=== PATIENT | male | born 1970 | race Caucasian/White ===

== ENCOUNTER 2017-09-09 19:31 | Emergency (ER) | payer OTHER ==
[~2017-09-09] VITALS: Ht 182.9 cm; Wt 72.6 kg
[~2017-09-09 19:31] MED LIST: CHLO25 PO; Keflex500 MG PO; LEVE500 PO; Therapeutic M1 EAC4 PO
== END 2017-09-09 20:59 | disposition home or self-care (01) ==
LOC: ER 19:31
DX: S61.011A Laceration without foreign body of right thumb without damage to nail, initial encounter (principal); Z23 Encounter for immunization; F17.200 Nicotine dependence, unspecified, uncomplicated; W26.8XXA Contact with other sharp object(s), not elsewhere classified, initial encounter
CPT/HCPCS: 12001; 90471; 90714; 99283

== ENCOUNTER 2018-06-28 11:16 | Emergency (ER) | payer OTHER ==
[~2018-06-28] VITALS: Ht 185.4 cm; Wt 80.7 kg
[2018-06-28 12:05] LABS: Source, Urine Clean Catch
[2018-06-28 12:06] LABS: BASOPHILS ABSOLUTE AUTO 0.17 K/mm3 (0.00-0.23); BASOPHILS PERCENT AUTO 1 % (0-2); EOSINOPHILS ABSOLUTE AUTO 0.81 K/mm3 (0.00-0.68); EOSINOPHILS PERCENT AUTO 6 % (0-6); Hematocrit 35.4 % (37.0-53.0); Hemoglobin 11.4 g/dL (13.5-17.5); IMMATURE GRAN ABSOLUTE AUTO 0.04 K/mm3 (0.00-0.10); IMMATURE GRAN PERCENT AUTO 0 % (0-1); LYMPHOCYTES PERCENT AUTO 14 % (21-46); MONOCYTES ABSOLUTE AUTO 1.51 K/mm3 (0.16-1.47); MONOCYTES PERCENT AUTO 12 % (4-13); Mean Corpuscular HGB 32.6 pg (26.0-34.0); Mean Corpuscular HGB Conc 32.2 g/dL (31.5-36.5); Mean Corpuscular Volume 101 fL (80-100); Mean Platelet Volume 9.7 fL (9.1-12.4); NEUTROPHILS ABSOLUTE AUTO 8.34 K/mm3 (1.96-9.15); NEUTROPHILS PERCENT AUTO 66 % (41-73); Platelet Count 203 K/mm3 (150-400); RDW Coefficient Variation 14.6 % (11.7-14.2); RDW Standard Deviation 54.9 fL (35.1-46.3); White Blood Cell Count 12.57 K/mm3 (4.00-11.30)
[2018-06-28 12:07] LABS: Blood, Urine Neg (Neg); Glucose Qualitative, Urine Neg (Neg); Ketones, Urine Neg (Neg); Leukocyte Esterase, Urine 1+ (Neg); Nitrite, Urine Neg (Neg); Protein, Urine 2+ (Neg); Urobilinogen, Urine 3+ (Normal); pH, Urine 6.5 (5.0-8.0)
[2018-06-28 12:21] LABS: International Normalized Ratio 1.25
[2018-06-28 12:24] LABS: Appearance, Urine Clear (Clear); Bilirubin, Urine 1+ (Neg); Color, Urine Yellow (P-Yellow)
[2018-06-28 12:25] LABS: Bacteria Not Seen /hpf; Red Blood Cells, Urine Not Seen /hpf (0-2); Squamous Epithelial Cells Few /hpf (Few); White Blood Cells, Urine Rare /hpf (0-5)
[2018-06-28 12:26] LABS: Mucus Mod (0-Heavy)
[2018-06-28 12:28] LABS: Alanine Aminotransfer (ALT/SGP 24 U/L (12-78); Albumin, Blood 2.6 g/dL (3.4-5.0); Albumin/Globulin Ratio 0.5 (0.8-1.8); Alk Phos 413 U/L (50-136); Anion Gap 10 mmol/L (6-16); Aspartate Aminotrans (AST/SGOT 64 U/L (12-37); Bilirubin, Total 1.3 mg/dL (0.1-1.0); Blood Urea Nitrogen 5 mg/dL (8-24); Bun/Creatinine Ratio 8.8 (12.0-20.0); CO2, Blood 25 mmol/L (21-32); Calcium, Blood 7.6 mg/dL (8.5-10.1); Chloride, Blood 107 mmol/L (98-108); Creatinine, Blood 0.57 mg/dL (0.60-1.20); Globulin, Blood 5.1 g/dL (2.2-4.0); Glomerular Filtration Rate >60 (60-); Glucose, Blood 100 mg/dL (70-99); Potassium, Blood 3.3 mmol/L (3.5-5.5); Sodium, Blood 142 mmol/L (136-145); Total Protein, Blood 7.7 g/dL (6.4-8.2)
== END 2018-06-28 17:25 | disposition home or self-care (01) ==
LOC: ER 11:16
PROVIDERS: Physician Assistant
DX: K76.9 Liver disease, unspecified (principal); E87.6 Hypokalemia; F10.20 Alcohol dependence, uncomplicated; F17.200 Nicotine dependence, unspecified, uncomplicated; Z79.899 Other long term (current) drug therapy
CPT/HCPCS: 36415; 49083; 71046; 80053; 81001; 85025; 85610; 85730; 99284-25

== ENCOUNTER 2018-07-27 11:40 | Emergency (ER) | payer OTHER ==
[~2018-07-27] VITALS: Ht 185.4 cm; Wt 79.4 kg
[2018-07-27 12:47] LABS: BASOPHILS ABSOLUTE AUTO 0.13 K/mm3 (0.00-0.23); BASOPHILS PERCENT AUTO 1 % (0-2); EOSINOPHILS ABSOLUTE AUTO 0.06 K/mm3 (0.00-0.68); EOSINOPHILS PERCENT AUTO 1 % (0-6); Hemoglobin 12.2 g/dL (13.5-17.5); IMMATURE GRAN ABSOLUTE AUTO 0.05 K/mm3 (0.00-0.10); IMMATURE GRAN PERCENT AUTO 0 % (0-1); LYMPHOCYTES ABSOLUTE AUTO 1.33 K/mm3 (0.84-5.20); LYMPHOCYTES PERCENT AUTO 10 % (21-46); MONOCYTES ABSOLUTE AUTO 1.01 K/mm3 (0.16-1.47); MONOCYTES PERCENT AUTO 8 % (4-13); Mean Corpuscular HGB 30.3 pg (26.0-34.0); Mean Corpuscular HGB Conc 32.1 g/dL (31.5-36.5); Mean Corpuscular Volume 94 fL (80-100); Mean Platelet Volume 9.5 fL (9.1-12.4); NEUTROPHILS ABSOLUTE AUTO 10.54 K/mm3 (1.96-9.15); NEUTROPHILS PERCENT AUTO 80 % (41-73); Platelet Count 252 K/mm3 (150-400); RDW Standard Deviation 55.7 fL (35.1-46.3); Red Blood Cell Count 4.03 M/mm3 (4.30-5.90); White Blood Cell Count 13.12 K/mm3 (4.00-11.30)
[2018-07-27 13:09] LABS: Alanine Aminotransfer (ALT/SGP 30 U/L (12-78); Albumin, Blood 2.6 g/dL (3.4-5.0); Albumin/Globulin Ratio 0.4 (0.8-1.8); Alk Phos 488 U/L (50-136); Anion Gap 12 mmol/L (6-16); Aspartate Aminotrans (AST/SGOT 106 U/L (12-37); Bilirubin, Total 1.9 mg/dL (0.1-1.0); Blood Urea Nitrogen 5 mg/dL (8-24); Bun/Creatinine Ratio 7.7 (12.0-20.0); CO2, Blood 25 mmol/L (21-32); Calcium, Blood 8.2 mg/dL (8.5-10.1); Chloride, Blood 101 mmol/L (98-108); Creatinine, Blood 0.65 mg/dL (0.60-1.20); Glomerular Filtration Rate >60 (60-); Glucose, Blood 102 mg/dL (70-99); Potassium, Blood 3.5 mmol/L (3.5-5.5); Sodium, Blood 138 mmol/L (136-145); Total Protein, Blood 8.6 g/dL (6.4-8.2)
[2018-07-27 17:00] LABS: Automated BF WBC Count 0.172 K/mm3 (0-999); Body Fluid WBC Count 172 /mm3 (0-999)
[2018-07-27 17:53] LABS: Appearance, Body Fluid Clear (Clear); Color, Body Fluid Yellow (None-Yellow); RBC Count, Body Fluid 22 /mm3 (0-0)
[2018-07-27 18:11] LABS: Source, Urine Clean Catch
[2018-07-27 18:27] LABS: Appearance, Urine Clear (Clear); Blood, Urine 4+ (Neg); Color, Urine Amber (P-Yellow); Glucose Qualitative, Urine Neg (Neg); Ketones, Urine 3+ (Neg); Leukocyte Esterase, Urine 1+ (Neg); Nitrite, Urine Pos (Neg); Protein, Urine 2+ (Neg); Specific Gravity, Urine 1.025 (1.003-1.022); Urobilinogen, Urine 4+ (Normal)
[2018-07-27 18:41] LABS: Total Cell Count, Body Fluid 100
[2018-07-27 19:21] LABS: Bilirubin, Urine 2+ (Neg)
[2018-07-27 19:23] LABS: Bacteria Mod /hpf; Mucus Mod (0-Heavy); Squamous Epithelial Cells Mod /hpf (Few)
== END 2018-07-27 20:06 | disposition home or self-care (01) ==
LOC: ER 11:40
PROVIDERS: Physician Assistant
DX: K70.31 Alcoholic cirrhosis of liver with ascites (principal); F17.210 Nicotine dependence, cigarettes, uncomplicated
CPT/HCPCS: 36415; 49083; 80053; 81001; 83690; 85025; 87086; 89051; 93005; 93010; 99284-25

== ENCOUNTER 2018-08-11 11:12 | Emergency (ER) | payer OTHER ==
[~2018-08-11] VITALS: Ht 185.4 cm; Wt 77.1 kg
== END 2018-08-11 16:15 | disposition home or self-care (01) ==
LOC: ER 11:12
DX: K70.31 Alcoholic cirrhosis of liver with ascites (principal); F17.210 Nicotine dependence, cigarettes, uncomplicated
CPT/HCPCS: 36415; 49083; 99284-25

== ENCOUNTER 2018-08-24 10:53 | Emergency (ER) | payer OTHER ==
[~2018-08-24] VITALS: Ht 185.4 cm; Wt 81.2 kg
[2018-08-24] MEDS ORDERED: Lactulose10 GM/151 PO (11:04)
[2018-08-24] MEDS ORDERED: FURO20 PO (11:04)
[2018-08-24] MEDS ORDERED: Sulfamethoxazo1 EAC4 PO (11:04)
[2018-08-24 12:47] LABS: BASOPHILS ABSOLUTE AUTO 0.08 K/mm3 (0.00-0.23); BASOPHILS PERCENT AUTO 1 % (0-2); EOSINOPHILS ABSOLUTE AUTO 0.17 K/mm3 (0.00-0.68); EOSINOPHILS PERCENT AUTO 2 % (0-6); Hematocrit 33.4 % (37.0-53.0); Hemoglobin 11.2 g/dL (13.5-17.5); IMMATURE GRAN ABSOLUTE AUTO 0.04 K/mm3 (0.00-0.10); IMMATURE GRAN PERCENT AUTO 0 % (0-1); LYMPHOCYTES ABSOLUTE AUTO 1.29 K/mm3 (0.84-5.20); LYMPHOCYTES PERCENT AUTO 12 % (21-46); MONOCYTES ABSOLUTE AUTO 1.27 K/mm3 (0.16-1.47); MONOCYTES PERCENT AUTO 11 % (4-13); Mean Corpuscular HGB 32.4 pg (26.0-34.0); Mean Corpuscular HGB Conc 33.5 g/dL (31.5-36.5); Mean Corpuscular Volume 97 fL (80-100); Mean Platelet Volume 9.8 fL (9.1-12.4); NEUTROPHILS ABSOLUTE AUTO 8.39 K/mm3 (1.96-9.15); NEUTROPHILS PERCENT AUTO 75 % (41-73); Platelet Count 158 K/mm3 (150-400); RDW Coefficient Variation 20.3 % (11.7-14.2); RDW Standard Deviation 71.9 fL (35.1-46.3); Red Blood Cell Count 3.46 M/mm3 (4.30-5.90); White Blood Cell Count 11.24 K/mm3 (4.00-11.30)
[2018-08-24 13:08] LABS: International Normalized Ratio 1.3; Prothrombin Time Results 13.5 Sec (9.7-11.5)
== END 2018-08-24 12:40 | disposition home or self-care (01) ==
LOC: ER 10:53
PROVIDERS: Emergency Medicine
DX: K70.31 Alcoholic cirrhosis of liver with ascites (principal); Z79.899 Other long term (current) drug therapy
CPT/HCPCS: 36415; 85025; 85610; 85730; 99284

== ENCOUNTER 2018-08-28 09:00 | Day surgery (SDC) | payer OTHER ==
[~2018-08-28 09:00] MED LIST changes: +FURO20 PO; +Lactulose10 GM/151 PO; +Sulfamethoxazo1 EAC4 PO
== END 2018-08-28 23:03 | disposition home or self-care (01) ==
LOC: US 09:00
DX: K74.60 Unspecified cirrhosis of liver (principal); R18.8 Other ascites
CPT/HCPCS: 49083

== ENCOUNTER 2018-09-08 13:19 | Day surgery (SDC) | payer OTHER ==
[2018-09-08 14:02] LABS: International Normalized Ratio 1.26; Prothrombin Time Results 13.1 Sec (9.7-11.5)
[2018-09-08 14:12] LABS: Alanine Aminotransfer (ALT/SGP 62 U/L (12-78); Albumin, Blood 2.2 g/dL (3.4-5.0); Albumin/Globulin Ratio 0.4 (0.8-1.8); Alk Phos 636 U/L (50-136); Anion Gap 11 mmol/L (6-16); Aspartate Aminotrans (AST/SGOT 166 U/L (12-37); Bilirubin, Total 3.1 mg/dL (0.1-1.0); Blood Urea Nitrogen 15 mg/dL (8-24); Bun/Creatinine Ratio 13.9 (12.0-20.0); CO2, Blood 23 mmol/L (21-32); Calcium, Blood 8.2 mg/dL (8.5-10.1); Chloride, Blood 91 mmol/L (98-108); Creatinine, Blood 1.08 mg/dL (0.60-1.20); Globulin, Blood 6.2 g/dL (2.2-4.0); Glomerular Filtration Rate >60 (60-); Glucose, Blood 110 mg/dL (70-99); Potassium, Blood 3.9 mmol/L (3.5-5.5); Sodium, Blood 125 mmol/L (136-145); Total Protein, Blood 8.4 g/dL (6.4-8.2)
[2018-09-08 15:23] LABS: Automated BF WBC Count 0.097 K/mm3 (0-999); Body Fluid WBC Count 97 /mm3 (0-999)
[2018-09-08 15:33] LABS: Albumin, Body Fluid 0.4 g/dL; Protein, Body Fluid 1.2 g/dL
[2018-09-08 15:47] LABS: Appearance, Body Fluid Clear (Clear); Color, Body Fluid Yellow (None-Yellow)
[2018-09-08 16:47] LABS: RBC Count, Body Fluid 58 /mm3 (0-0)
[2018-09-08 16:48] LABS: Total Cell Count, Body Fluid 100
[2018-09-12] MEDS ORDERED: SPIR50 (10:07)
[2018-09-12] MEDS ORDERED: CALCIUM + D3 E1 EACH (10:10)
[2018-09-12] MEDS ORDERED: LEVSOD75 (10:12)
[2018-09-12] MEDS ORDERED: ALBU90OI6 (10:13)
== END 2018-09-08 23:25 | disposition home or self-care (01) ==
LOC: US 13:19
PROVIDERS: Internal Medicine Gastroenterology
DX: K70.31 Alcoholic cirrhosis of liver with ascites (principal)
CPT/HCPCS: 36415; 49083; 80053; 82042; 82105; 84157; 85610; 87070; 87205; 89051

== ENCOUNTER 2018-09-27 11:11 | Emergency (ER) | payer OTHER ==
[~2018-09-27] VITALS: Ht 185.4 cm; Wt 79.4 kg
[~2018-09-27 11:11] MED LIST changes: +ALBU90OI6 INH; +CALCIUM 600 +1 EA10 PO; -FURO20 PO; +FURO40 PO; +LEVSOD50 PO; +SPIR50 PO
[2018-09-27 11:53] LABS: BASOPHILS ABSOLUTE AUTO 0.08 K/mm3 (0.00-0.23); BASOPHILS PERCENT AUTO 1 % (0-2); EOSINOPHILS ABSOLUTE AUTO 0.17 K/mm3 (0.00-0.68); EOSINOPHILS PERCENT AUTO 2 % (0-6); Hematocrit 32.7 % (37.0-53.0); Hemoglobin 11.3 g/dL (13.5-17.5); IMMATURE GRAN ABSOLUTE AUTO 0.04 K/mm3 (0.00-0.10); IMMATURE GRAN PERCENT AUTO 0 % (0-1); LYMPHOCYTES ABSOLUTE AUTO 1.37 K/mm3 (0.84-5.20); LYMPHOCYTES PERCENT AUTO 15 % (21-46); MONOCYTES ABSOLUTE AUTO 1.12 K/mm3 (0.16-1.47); MONOCYTES PERCENT AUTO 12 % (4-13); Mean Corpuscular HGB 34.5 pg (26.0-34.0); Mean Corpuscular HGB Conc 34.6 g/dL (31.5-36.5); Mean Corpuscular Volume 100 fL (80-100); Mean Platelet Volume 9.2 fL (9.1-12.4); NEUTROPHILS ABSOLUTE AUTO 6.66 K/mm3 (1.96-9.15); NEUTROPHILS PERCENT AUTO 71 % (41-73); Platelet Count 145 K/mm3 (150-400); RDW Standard Deviation 61.9 fL (35.1-46.3); Red Blood Cell Count 3.28 M/mm3 (4.30-5.90); White Blood Cell Count 9.44 K/mm3 (4.00-11.30)
[2018-09-27 12:14] LABS: Alanine Aminotransfer (ALT/SGP 56 U/L (12-78); Albumin, Blood 2.2 g/dL (3.4-5.0); Albumin/Globulin Ratio 0.4 (0.8-1.8); Alk Phos 572 U/L (50-136); Anion Gap 11 mmol/L (6-16); Aspartate Aminotrans (AST/SGOT 127 U/L (12-37); Blood Urea Nitrogen 15 mg/dL (8-24); Bun/Creatinine Ratio 13.9 (12.0-20.0); CO2, Blood 25 mmol/L (21-32); Calcium, Blood 8.3 mg/dL (8.5-10.1); Chloride, Blood 89 mmol/L (98-108); Creatinine, Blood 1.08 mg/dL (0.60-1.20); Globulin, Blood 6.2 g/dL (2.2-4.0); Glomerular Filtration Rate >60 (60-); Glucose, Blood 117 mg/dL (70-99); Potassium, Blood 3.8 mmol/L (3.5-5.5); Sodium, Blood 125 mmol/L (136-145); Total Protein, Blood 8.4 g/dL (6.4-8.2)
[2018-09-27 12:19] LABS: International Normalized Ratio 1.19; Prothrombin Time Results 12.4 Sec (9.7-11.5)
== END 2018-09-27 18:24 | disposition home or self-care (01) ==
LOC: ER 11:11
PROVIDERS: Emergency Medicine
DX: K70.31 Alcoholic cirrhosis of liver with ascites (principal); F17.210 Nicotine dependence, cigarettes, uncomplicated; Z79.899 Other long term (current) drug therapy
CPT/HCPCS: 36415; 49083; 80053; 85025; 85610; 96365-59; 96366-59; 99284-25; P9045; P9046

== ENCOUNTER 2018-10-09 13:33 | Day surgery (SDC) | payer OTHER | END 2018-10-09 22:45 | disposition home or self-care (01) | LOC: US 13:33 | DX: K74.60 Unspecified cirrhosis of liver (principal); R18.8 Other ascites | CPT/HCPCS: 49083 ==

== ENCOUNTER 2018-10-25 15:27 | Inpatient (IN) | payer OTHER ==
[~2018-10-25] VITALS: Ht 185.4 cm; Wt 64.4 kg
[2018-10-25] MEDS ORDERED: Omeprazole20 M1 PO (17:04)
[2018-10-25 18:12] LABS: Alanine Aminotransfer (ALT/SGP 50 U/L (12-78); Albumin, Blood 2.5 g/dL (3.4-5.0); Albumin/Globulin Ratio 0.4 (0.8-1.8); Alk Phos 595 U/L (50-136); Anion Gap 11 mmol/L (6-16); Aspartate Aminotrans (AST/SGOT 129 U/L (12-37); Bilirubin, Total 4.5 mg/dL (0.1-1.0); Blood Urea Nitrogen 19 mg/dL (8-24); Bun/Creatinine Ratio 15.7 (12.0-20.0); CO2, Blood 27 mmol/L (21-32); Calcium, Blood 8.5 mg/dL (8.5-10.1); Chloride, Blood 81 mmol/L (98-108); Creatinine, Blood 1.21 mg/dL (0.60-1.20); Glomerular Filtration Rate >60 (60-); Glucose, Blood 117 mg/dL (70-99); Potassium, Blood 4.2 mmol/L (3.5-5.5); Sodium, Blood 119 mmol/L (136-145); Total Protein, Blood 8.5 g/dL (6.4-8.2)
[2018-10-25 19:22] LABS: Osmolality, Urine 499 mos/kg (15-1400)
[2018-10-25 19:27] LABS: Sodium, Urine, Random <5 mmol/L (20-110)
[2018-10-25 21:28] LABS: Anion Gap 11 mmol/L (6-16); Blood Urea Nitrogen 20 mg/dL (8-24); Bun/Creatinine Ratio 17.2 (12.0-20.0); CO2, Blood 27 mmol/L (21-32); Calcium, Blood 8.3 mg/dL (8.5-10.1); Chloride, Blood 82 mmol/L (98-108); Creatinine, Blood 1.16 mg/dL (0.60-1.20); Glomerular Filtration Rate >60 (60-); Glucose, Blood 106 mg/dL (70-99); Sodium, Blood 120 mmol/L (136-145)
[2018-10-26 04:07] LABS: Source, Urine Catheter
[2018-10-26 04:13] LABS: Blood, Urine 1+ (Neg); Glucose Qualitative, Urine Neg (Neg); Ketones, Urine 1+ (Neg); Leukocyte Esterase, Urine 1+ (Neg); Nitrite, Urine Pos (Neg); Protein, Urine 2+ (Neg); Specific Gravity, Urine 1.025 (1.003-1.022); Urobilinogen, Urine 3+ (Normal)
[2018-10-26 04:25] LABS: U Amphetamine Screen Not Detected; U Barbituate Screen Not Detected; U Benzodiazapine Screen Not Detected; U Buprenorphine Screen Not Detected; U Cannabinoids Screen DETECTED; U Cocaine Screen Not Detected; U Methadone Screen Not Detected; U Methamphetamine Screen Not Detected; U Opiates Screen Not Detected; U Oxycodone Screen Not Detected; U Phencyclidine Screen Not Detected; U Propoxyphene Screen Not Detected
[2018-10-26 04:25] LABS: Appearance, Urine Hazy (Clear); Bilirubin, Urine 2+ (Neg); Color, Urine Amber (P-Yellow)
[2018-10-26 04:26] LABS: Hematocrit 28.5 % (37.0-53.0); Hemoglobin 10.2 g/dL (13.5-17.5); Mean Corpuscular HGB 36.4 pg (26.0-34.0); Mean Corpuscular HGB Conc 35.8 g/dL (31.5-36.5); Mean Corpuscular Volume 102 fL (80-100); Mean Platelet Volume 9.1 fL (9.1-12.4); Platelet Count 124 K/mm3 (150-400); RDW Coefficient Variation 16.7 % (11.7-14.2); RDW Standard Deviation 62.2 fL (35.1-46.3); White Blood Cell Count 9.62 K/mm3 (4.00-11.30)
[2018-10-26 04:29] LABS: Amorphous Light (0-Heavy); Bacteria Many /hpf; Hyaline Casts TNTC /lpf (0-2); Red Blood Cells, Urine 0-2 /hpf (0-2); Squamous Epithelial Cells Many /hpf (Few)
[2018-10-26 04:40] LABS: International Normalized Ratio 1.25
[2018-10-26 04:55] LABS: Anion Gap 9 mmol/L (6-16); Blood Urea Nitrogen 19 mg/dL (8-24); Bun/Creatinine Ratio 15.1 (12.0-20.0); CO2, Blood 29 mmol/L (21-32); Chloride, Blood 83 mmol/L (98-108); Creatinine, Blood 1.26 mg/dL (0.60-1.20); Glomerular Filtration Rate >60 (60-); Glucose, Blood 102 mg/dL (70-99); Potassium, Blood 4.2 mmol/L (3.5-5.5); Sodium, Blood 121 mmol/L (136-145)
--- NOTE | 2018-10-26 07:19 | NUR ---
END OF SHIFT SUMMARY ASSUMED CARE OF PT FROM ED. PT ALERT AND ORIENTED, TALKING WITH STAFF. WALKS INTO PCU BED. PT PRESENTS WITH SODIUM OF 119, HAS RAISED TO 121. RECEIVING NS INF @75MLS/HR T/O SHIFT. PT HAD PERIOD OF VOMITING BUT RESIDED WITH AMARA, STATES VOMITING IN AM IS BASELINE OCCURENCE FOR HIM. PT STATES DAILY PINT VODKA CONSUMPTION, DRANK RIGHT BEFORE COMING IN. PT STATES HE DOESN'T BEGIN TO WITHDRAWAL FOR AT LEAST 3 DAYS. PT'S HIGHEST CIWA WAS 5 BUT GENERALLY WAS A 0. THE RESULT OF 5 WAS SOLELY RELATED TO PERIOD OF EMESIS. PT TO RECEIVE US GUIDED PARACENTESIS THIS AM. VSS THIS SHIFT. PT'S FRIEND HAS ZAFAR T BEDSIDE T/O SHIFT. CALL LIGHT WITHIN REACH, BED IN LOWEST POSITION. REPORT GIVEN TO ONCOMING NURSE.
--- NOTE | 2018-10-26 15:23 | NUR ---
Spiritual care visit conducted. Patient was visited by the [facility] manufacturing operations manager, Father Danish and then I responded to a request for spiritual care. Apparently patient feels he has his spiritual care needs met prior to my visit but was very appreciative of all the attention. I asked patient his plan for sobriety and he stated that his plan revolves around getting home and back to the trees and wilderness that inspire him. Patient did not really have a plan beyond this, nor did he feel inclined to elaborate. I blessed patient as I left.
[2018-10-26 15:40] LABS: Anion Gap 13 mmol/L (6-16); Blood Urea Nitrogen 17 mg/dL (8-24); Bun/Creatinine Ratio 13.6 (12.0-20.0); CO2, Blood 26 mmol/L (21-32); Chloride, Blood 83 mmol/L (98-108); Creatinine, Blood 1.25 mg/dL (0.60-1.20); Glomerular Filtration Rate >60 (60-); Glucose, Blood 111 mg/dL (70-99); Potassium, Blood 3.9 mmol/L (3.5-5.5); Sodium, Blood 122 mmol/L (136-145)
--- NOTE | 2018-10-26 16:29 | NUR ---
SHIFT SUMMARY NO ACUTE CHANGES THIS SHIFT. PT DENIES PAIN, SOB, N/V. PT HAS SEVERE ABD DISTENTION. PT EXPECTING TO HAVE A PARACENTESIS TOMORROW--HOLDING ALL BLOOD THINNERS. TELE REMAINS SR/ST IN THE 100S. PT SBA TO RESTROOM AND ALSO USING URINAL TO VOID. IV WILL BE SL AFTER THIS BAG FINISHES INFUSING. IV LASIX GIVEN TODAY TO DIURESE PT. SODIUM LEVELS SLOWLY TRENDING UP. CIWA NEGATIVE. PT FRIEND IN ROOM FOR SUPPORT. USES CALL LIGHT APPROPRIATELY. WILL CONT TO MONITOR UNTIL REPORT TO NOC RN.
--- NOTE | 2018-10-26 22:46 | NUR ---
ASSUMED PT CARE AT 1915 PT RESTING IN BED ABLE TO MAKE MAJOR POSITION CHANGES BY HIMSELF. ALERT AND ORIENTED TO PERSON, PLACE, TIME, AND SITUATION. DENIES N/V, PAIN, VISUAL AND AUDITORY HALLUCINATIONS. CIWA SCORE OF ZERO. ABDOMEN IS ROUND, SEVERELY DISTENDED WITH HYPOACTIVE TONES NOTED. PARACENTESIS SCHEDULED FOR TOMORROW. PT UP TO USE THE RESTROOM; GAIT IS VERY UNSTABLE AND WEAK. PT IS A HIGH FALL RISK. HIGHLY ENCOURAGED PT TO CALL FOR ASSIST PRIOR TO TRANSFERRING IN ORDER TO MANAGE CORDS; PT DEMONSTRATED UNDERSTANDING. CALL LIGHT IN REACH. FRIEND AT BEDSIDE. PT IS ABLE TO MAKE HIS NEEDS KNOWN. URINAL LEFT AT BEDSIDE.
[2018-10-27 04:24] LABS: BASOPHILS ABSOLUTE AUTO 0.05 K/mm3 (0.00-0.23); BASOPHILS PERCENT AUTO 1 % (0-2); EOSINOPHILS ABSOLUTE AUTO 0.19 K/mm3 (0.00-0.68); EOSINOPHILS PERCENT AUTO 3 % (0-6); Hematocrit 24.8 % (37.0-53.0); IMMATURE GRAN ABSOLUTE AUTO 0.01 K/mm3 (0.00-0.10); IMMATURE GRAN PERCENT AUTO 0 % (0-1); LYMPHOCYTES ABSOLUTE AUTO 0.77 K/mm3 (0.84-5.20); LYMPHOCYTES PERCENT AUTO 12 % (21-46); MONOCYTES ABSOLUTE AUTO 0.79 K/mm3 (0.16-1.47); MONOCYTES PERCENT AUTO 13 % (4-13); Mean Corpuscular HGB 37.5 pg (26.0-34.0); Mean Corpuscular HGB Conc 36.3 g/dL (31.5-36.5); Mean Corpuscular Volume 103 fL (80-100); Mean Platelet Volume 9.1 fL (9.1-12.4); NEUTROPHILS ABSOLUTE AUTO 4.42 K/mm3 (1.96-9.15); NEUTROPHILS PERCENT AUTO 71 % (41-73); Platelet Count 97 K/mm3 (150-400); RDW Coefficient Variation 16.5 % (11.7-14.2); RDW Standard Deviation 62.4 fL (35.1-46.3); White Blood Cell Count 6.23 K/mm3 (4.00-11.30)
[2018-10-27 04:45] LABS: Alanine Aminotransfer (ALT/SGP 35 U/L (12-78); Albumin, Blood 2.8 g/dL (3.4-5.0); Albumin/Globulin Ratio 0.7 (0.8-1.8); Alk Phos 403 U/L (50-136); Anion Gap 9 mmol/L (6-16); Aspartate Aminotrans (AST/SGOT 79 U/L (12-37); Blood Urea Nitrogen 17 mg/dL (8-24); Bun/Creatinine Ratio 13.3 (12.0-20.0); CO2, Blood 28 mmol/L (21-32); Calcium, Blood 8.3 mg/dL (8.5-10.1); Chloride, Blood 84 mmol/L (98-108); Creatinine, Blood 1.28 mg/dL (0.60-1.20); Glomerular Filtration Rate >60 (60-); Glucose, Blood 112 mg/dL (70-99); Potassium, Blood 3.9 mmol/L (3.5-5.5); Sodium, Blood 121 mmol/L (136-145); Total Protein, Blood 6.8 g/dL (6.4-8.2)
--- NOTE | 2018-10-27 06:00 | NUR ---
END OF SHIFT SUMMARY NO SIGNIFICANT CHANGES T/O NIGHT. PT REMAINED ALERT AND ORIENTED; ABLE TO MAKE NEEDS KNOWN. NEGATIVE CIWA'S ALL SHIFT. TEMP WAS SLIGHTLY ELEVATED WITH TMAX OF 99.8; HOWEVER, NO TREMORS, HALLUCINATIONS, BEADS OF SWEAT, ETC... PT IS VERY UNSTABLE ON HIS FEET; GENERALIZED WEAKNESS. PARACENTESIS IS SCHEDULED FOR TODAY LONG LOVENOX IS HELD THIS MORNING. PT HAD ONE EPISODE OF DRY HEAVING AND WAS MEDICATED WITH ZOFRAN X1; EFFECTIVE. CALL LIGHT WITHIN REACH. FRIEND AT BEDSIDE ALL NIGHT AND ASSISTING WITH NEEDS WELL. WILL CONTINUE TO MONITOR UNTIL REPORT IS HANDED OFF TO ONCOMING RN.
--- NOTE | 2018-10-27 11:18 | NUR ---
The pt went for paracentesis and has just also finished working with Vick the physical therapist. He is sitting on the side of the bed.
--- NOTE | 2018-10-27 12:43 | NUR ---
ENTERED THE ROOM, PT ACTIVELY SEIZING. REBOUNDED WITHIN A MINUTE AND BEGAN SECOND SEIZURE AND WAS POSTULATING DURING SECOND EVENT. DR AND FISH HATCHERY ASSISTANT WELL 2 ADDITIONAL RN'S AT BEDSIDE TO ASSIST PATIENT. WILL CONTINUE TO MONITOR AND FOLLOW DR. JI ORDERS.
--- NOTE | 2018-10-27 13:06 | NUR ---
Returned from my lunch to find that the patient was surrounded by staff, who informed me that the pt had had a convulsive seizure. He was lying in bed, supine, eyes rolled back into his head, and non responsive initially when I saw him. Dr. Zayas here, and transfer orders had been received for the pt to go to ICU. I was told that Ativan had been administered per orders from Dr. Zayas. vital signs taken, noted stable. The pt was beginning to be more responsive but still lethargic when he was transferred to ICU2. His room mate Ry was present at the time of transfer, and took the pt's belongings including a cell phone, white rosary necklace and glasses into his own possession for safekeeping.
--- NOTE | 2018-10-27 13:13 | NUR ---
ARRIVAL TO UNIT PT. ARRIVES TO ICU AT THIS TIME. UPON ARRIVAL PT EYES ROLLED BACK IN HEAD BRIEFLY, AND PT DISORIENTED TO LOCATION AND EVENT. SLOW TO RESPOND AND SPEECH DIFFICULT TO UNDERSTAND. PT. TRANSFERRED TO ICU BED, VSS UPON ARRIVAL. JULIENN. PT. WAS MED WITH ATIVAN PRIOR TO ARRIVAL. SEIZURE PADS IN PLACE TO BED AND BED IN LOW POSITION. PT. SOILED PANTS, ATTENDS PLACED UPON ARRIVAL. PT. CALL TO DR. JI FOR PLAN OF CARE. PER DR. JI LABS ORDERED AND WILL CALL ONCE RESULTS ARE OBTAINED FOR ADDITIONAL MEDICATIONS.
[2018-10-27 13:53] LABS: Alanine Aminotransfer (ALT/SGP 32 U/L (12-78); Albumin, Blood 3.1 g/dL (3.4-5.0); Albumin/Globulin Ratio 0.8 (0.8-1.8); Alk Phos 388 U/L (50-136); Anion Gap 14 mmol/L (6-16); Aspartate Aminotrans (AST/SGOT 74 U/L (12-37); Bilirubin, Total 4.6 mg/dL (0.1-1.0); Blood Urea Nitrogen 16 mg/dL (8-24); Bun/Creatinine Ratio 12.6 (12.0-20.0); CO2, Blood 24 mmol/L (21-32); Calcium, Blood 8.4 mg/dL (8.5-10.1); Chloride, Blood 83 mmol/L (98-108); Creatinine, Blood 1.27 mg/dL (0.60-1.20); Glomerular Filtration Rate >60 (60-); Glucose, Blood 99 mg/dL (70-99); Potassium, Blood 3.1 mmol/L (3.5-5.5); Sodium, Blood 121 mmol/L (136-145); Total Protein, Blood 7.1 g/dL (6.4-8.2)
--- NOTE | 2018-10-27 14:22 | NUR ---
VOMITING PT. MORE AWAKE NOW, CONTINUES TO BE FORGETFUL TO WHY HE IS IN A NEW ROOM AND CONTINUES TO TRY AND GET OOB. BED ALARM ON, WITH BED IN LOW POSITION. WHEN PT GETTING BACK INTO BED, BEGAN TO GET NAUSEOUS AND BEGAN TO VOMIT. APPROX 400CC UNDIGESTED FOOD. PT. MED WITH ZOFRAN AND VOMITING SUBSIDED. PT. VSS REMAIN STABLE. NS WITH 20MEQ STARTED PER DR. JI POST LAB RESULTS.
--- NOTE | 2018-10-27 15:12 | NUR ---
PT.not doing well,transfered ICU ,prayed for pt.
--- NOTE | 2018-10-27 18:11 | NUR ---
SHIFT SUMMARY PT. SLEEPING FOR MOST OF THE DAY. NO FURTHER EMESIS OR SEIZURES SINCE TRANSFER TO ICU. PT. VSS. VOIDS USING URINAL. JARETT. REPORT TO ONCOMING RN.
[2018-10-27 21:12] LABS: Anion Gap 9 mmol/L (6-16); Blood Urea Nitrogen 14 mg/dL (8-24); Bun/Creatinine Ratio 11.1 (12.0-20.0); CO2, Blood 30 mmol/L (21-32); Calcium, Blood 8.2 mg/dL (8.5-10.1); Chloride, Blood 86 mmol/L (98-108); Creatinine, Blood 1.26 mg/dL (0.60-1.20); Glomerular Filtration Rate >60 (60-); Glucose, Blood 102 mg/dL (70-99); Potassium, Blood 3.7 mmol/L (3.5-5.5); Sodium, Blood 125 mmol/L (136-145)
--- NOTE | 2018-10-27 21:47 | NUR ---
ASSUMED PT CARE AT 1915 PT ATTEMPTED TO GET OUT OF BED. BED ALARM SOUNDED AND PT WAS STATING HE NEEDED TO USE THE RESTROOM. PT TRIED TO STAND AND WAS TOO UNSTABLE WITH BALANCE. INSTRUCTED PT TO SIT BACK DOWN AND INSISTED ON URINAL USE. PT WAS COMPLIANT. VERY IMPULSIVE WHEN HE HAS THE URGE TO URINATE. SIDERAILS ARE UP AND IN PLACE WITH BED ALARM ON. PT IS ALERT TO HIMSELF AND TIME; HOWEVER, FORGETFUL OF PLACE. PT HAS BEEN MORE FORGETFUL SINCE SEIZURE EARLY IN THE DAY PER DAY SHIFT RN. HOWEVER, ABLE TO REORIENT APPROPRIATELY; NO TREMORS OR ELEVATED TEMP NOTED. PT DENIES ANY N/V, HALLUCINATIONS, TACTILE DISTURBANCES, AND HEADACHES. NEGATIVE FOR ANY AGITATION/ANXIETY. CALL LIGHT IS WITHIN REACH. PT IS ABLE TO MAKE HIS NEEDS KNOWN. DENIES ANY PAIN AND STATES HE IS FEELING BETTER SINCE HIS PARACENTESIS.
--- NOTE | 2018-10-28 01:15 | NUR ---
PLACED CALL TO DR. STEIN R/T LOW BP'S WITH MAP LESS THAN 60. NEW ORDERS FOR NS 250CC BOLUS.
[2018-10-28 03:43] LABS: BASOPHILS ABSOLUTE AUTO 0.05 K/mm3 (0.00-0.23); BASOPHILS PERCENT AUTO 1 % (0-2); EOSINOPHILS ABSOLUTE AUTO 0.19 K/mm3 (0.00-0.68); EOSINOPHILS PERCENT AUTO 3 % (0-6); Hematocrit 24.2 % (37.0-53.0); Hemoglobin 8.8 g/dL (13.5-17.5); IMMATURE GRAN ABSOLUTE AUTO 0.02 K/mm3 (0.00-0.10); IMMATURE GRAN PERCENT AUTO 0 % (0-1); LYMPHOCYTES ABSOLUTE AUTO 0.84 K/mm3 (0.84-5.20); LYMPHOCYTES PERCENT AUTO 13 % (21-46); MONOCYTES ABSOLUTE AUTO 0.68 K/mm3 (0.16-1.47); MONOCYTES PERCENT AUTO 11 % (4-13); Mean Corpuscular HGB 38.1 pg (26.0-34.0); Mean Corpuscular HGB Conc 36.4 g/dL (31.5-36.5); Mean Corpuscular Volume 105 fL (80-100); Mean Platelet Volume 9.5 fL (9.1-12.4); NEUTROPHILS PERCENT AUTO 73 % (41-73); Platelet Count 88 K/mm3 (150-400); RDW Coefficient Variation 16.5 % (11.7-14.2); RDW Standard Deviation 62.9 fL (35.1-46.3); Red Blood Cell Count 2.31 M/mm3 (4.30-5.90); White Blood Cell Count 6.48 K/mm3 (4.00-11.30)
[2018-10-28 04:00] LABS: Alanine Aminotransfer (ALT/SGP 28 U/L (12-78); Albumin, Blood 2.7 g/dL (3.4-5.0); Albumin/Globulin Ratio 0.8 (0.8-1.8); Alk Phos 311 U/L (50-136); Anion Gap 7 mmol/L (6-16); Aspartate Aminotrans (AST/SGOT 64 U/L (12-37); Blood Urea Nitrogen 13 mg/dL (8-24); Bun/Creatinine Ratio 10.6 (12.0-20.0); CO2, Blood 27 mmol/L (21-32); Calcium, Blood 7.7 mg/dL (8.5-10.1); Chloride, Blood 93 mmol/L (98-108); Creatinine, Blood 1.23 mg/dL (0.60-1.20); Globulin, Blood 3.3 g/dL (2.2-4.0); Glomerular Filtration Rate >60 (60-); Glucose, Blood 110 mg/dL (70-99); Magnesium, Blood 1.8 mg/dL (1.6-2.4); Potassium, Blood 3.5 mmol/L (3.5-5.5); Sodium, Blood 127 mmol/L (136-145)
--- NOTE | 2018-10-28 06:25 | NUR ---
END OF SHIFT SUMMARY PT HAS REMAINED PLEASANT AND COOPERATIVE WITH CARE. AGITATED A COUPLE TIMES WITH BEING WOKE UP; HOWEVER, WAS EASILY REDIRECTABLE WITH NO ISSUES. PT RECEIVED LASIX AND ALBUMIN LAST NIGHT AROUND 2100; LATER ON IN THE SHIFT BLOOD PRESSURES STARTED SLOWLY DROPPING TO MAP'S LESS THAN 65. ADMINISTERED 5MG OF MIDODRINE WITH NO EFFECT. CALLED DR. JARAMILLO WHO GAVE ORDERS FOR 250CC BOLUS, WHICH WAS UNEFFECTIVE. CALLED BACK AGAIN WITH ANOTHER 500CC BOLUS AND LEVOPHED. DR. JARAMILLO GAVE ORDERS TO ADMINSTER ANOTHER 500CC BOLUS IF THE FIRST ONE WAS UNEFFECTIVE, WHICH IT WAS. AFTER PT RECEIVED 1250 OF NS BOLUS'S SODIUM INCREASED FROM 125 TO 127. STARTED LEVOPHED AT 3MCG/MIN AND HAD TO INCREASE TO 5MCG/MIN. MAP'S ARE NOW GREATER THAN 65. PT HAS BEEN ALERT AND ORIENTED; ANSWERS QUESTIONS APPROPRIATELY ALL SHIFT. HAS TO BE REORIENTED OCCASIONALLY. LUNG SOUNDS CLEAR/DIM MOST OF SHIFT, BUT AFTER BOLUS LUNG SOUNDS BECAME MORE COARSE T/O. NO SOB OR DECREASE IN OXYGEN SATURATIONS NOTED. CALL LIGHT WITHIN REACH AND BED ALARM IN PLACE ALL SHIFT.
--- NOTE | 2018-10-28 07:48 | NUR ---
Recieved report from Silvana BATES. Patient sitting up in bed with HOB at 30 degrees. He is alert and able to answer questions appropriately. The PCT's got him up to chair and changed linen in bed. He is on RA and sats low to mid 90%'s. He stated he wants to go home and talked with him to wait for Dr To discuss. I got him beer with meals to help with withdrawl symptoms. He was a one person transfer to share and was slightly shaky. He has 20ga IV RFA dressingintact and site WNL's and is infusing NS with 20meq K at 75ml/hr. He also has 20ga IV in LFA dressing intact and site WNL's infusing NS at 20ml/hr and Levophed at 5 mcg/min and just reduced to 4mcg/min with systolics 107. He has friend visiting this am. He is tolerating breakfast without difficulty.
--- NOTE | 2018-10-28 10:11 | NUR ---
Patient remains in chair and has tolerated meds and IV. Is has been up independent for short periods with observation. He has finished second beer that he had for breakfast. No siezure have been witnessed today and he denies any problems or pain. VSS
--- NOTE | 2018-10-28 11:30 | NUR ---
Patient walked to shower with walker and tolerated well. After getting back his systolic was 110 and reduced Levophed to 3mcg. He just started lunch and seems to be tolerating well. He worked with PT and was a little unstable nwas was able to work with her the whole time. Dr Perez came by and wants Levophed titrated down so patient can be discharged. VSS Patient denies any needs or pain. See CIWA.
--- NOTE | 2018-10-28 13:30 | NUR ---
No significant changes with patient. I have reduced Levophed again abd systolics in the low 100's. He is very active in his chair and stands occassionally to strtch and seems stable. See MASON. VSS.
--- NOTE | 2018-10-28 15:30 | NUR ---
Friend in and out to see patient. Levophed at 2 mcg.. He remains up in chair and has been cooperative with care. He has agreed to Dr Perez to stay until am to see if levophed stays off. VSS. MOREAU with 20K remains running at 75ml/hr. He stands occassionally to stretch.
--- NOTE | 2018-10-28 17:53 | NUR ---
Levophed is on standby and systolics in the 90's with MAP >65. No othjer changes.
--- NOTE | 2018-10-28 19:21 | NUR ---
CALLED DR. REESE REGARDING PT'S ORDERS FOR LASIX. INFORMED HIM OF LAST NIGHT AND PT'S BLOOD PRESSURES NOT SUSTAINING WITH MAP'S GREATER THAN 65. INFORMED HIM THAT THE PT CURRENTLY HAS COARSE LUNG SOUNDS T/O WITH PITTING EDEMA TO BILATERAL FEET. DR. REESE STATED TO GO AHEAD AND GIVE THE LASIX WITH ALBUMIN.
--- NOTE | 2018-10-28 19:39 | NUR ---
ASSUMED PT CARE AT 1915 PT SITTING UP IN CHAIR ALERT AND ORIENTED AND ABLE TO COMMUNICATE NEEDS. VERY PLEASANT AND COOPERATIVE WITH CARE. NS WITH KCL INFUSING AT 75MLS/HR. FRIEND IN ROOM SLEEPING IN CHAIR. CIWA SCORE OF 2. DENIES ANY PAIN. REMINDED TO ASK FOR ASSISTANCE PRIOR TO TRANSFERING D/T POOR BALANCE AND UNSTEADY GAIT; PT DEMONSTRATED UNDERSTANDING, BUT THEN ATTEMPTED A FEW MINUTES LATER TO TRANSFER TO BED HIMSELF. ONCE IN BED ASSISTED WITH URINAL AND SET BED ALARM PRIOR TO EXITING ROOM. CALL LIGHT LEFT WITHIN REACH.
[2018-10-29 03:48] LABS: BASOPHILS ABSOLUTE AUTO 0.07 K/mm3 (0.00-0.23); BASOPHILS PERCENT AUTO 1 % (0-2); EOSINOPHILS ABSOLUTE AUTO 0.18 K/mm3 (0.00-0.68); EOSINOPHILS PERCENT AUTO 3 % (0-6); Hematocrit 25.1 % (37.0-53.0); IMMATURE GRAN ABSOLUTE AUTO 0.02 K/mm3 (0.00-0.10); IMMATURE GRAN PERCENT AUTO 0 % (0-1); LYMPHOCYTES ABSOLUTE AUTO 1.04 K/mm3 (0.84-5.20); LYMPHOCYTES PERCENT AUTO 17 % (21-46); MONOCYTES ABSOLUTE AUTO 0.79 K/mm3 (0.16-1.47); MONOCYTES PERCENT AUTO 13 % (4-13); Mean Corpuscular HGB 38.1 pg (26.0-34.0); Mean Corpuscular HGB Conc 35.9 g/dL (31.5-36.5); Mean Corpuscular Volume 106 fL (80-100); Mean Platelet Volume 9.5 fL (9.1-12.4); NEUTROPHILS ABSOLUTE AUTO 3.98 K/mm3 (1.96-9.15); NEUTROPHILS PERCENT AUTO 65 % (41-73); Platelet Count 86 K/mm3 (150-400); RDW Coefficient Variation 16.7 % (11.7-14.2); Red Blood Cell Count 2.36 M/mm3 (4.30-5.90); White Blood Cell Count 6.08 K/mm3 (4.00-11.30)
[2018-10-29 04:05] LABS: Alanine Aminotransfer (ALT/SGP 35 U/L (12-78); Albumin/Globulin Ratio 0.9 (0.8-1.8); Alk Phos 322 U/L (50-136); Anion Gap 9 mmol/L (6-16); Aspartate Aminotrans (AST/SGOT 75 U/L (12-37); Bilirubin, Total 3.1 mg/dL (0.1-1.0); Blood Urea Nitrogen 8 mg/dL (8-24); Bun/Creatinine Ratio 8.3 (12.0-20.0); CO2, Blood 22 mmol/L (21-32); Chloride, Blood 96 mmol/L (98-108); Creatinine, Blood 0.97 mg/dL (0.60-1.20); Globulin, Blood 3.2 g/dL (2.2-4.0); Glomerular Filtration Rate >60 (60-); Glucose, Blood 90 mg/dL (70-99); Potassium, Blood 4.1 mmol/L (3.5-5.5); Sodium, Blood 127 mmol/L (136-145); Total Protein, Blood 6.2 g/dL (6.4-8.2)
--- NOTE | 2018-10-29 06:00 | NUR ---
END OF SHIFT SUMMARY PT HAS BEEN ALERT AND ORIENTED T/O SHIFT WITH OCCASIONAL FORGETFULNESS NOTED. PT HAS BEEN VERY PLEASANT AND COOPERATIVE WITH CARE. CIWA'S HAVE BEEN 4 OR LESS. PT WAS HAVING AUDITORY HALLUCINATIONS THINKING HE WAS HEARING A PATIENT HOLLER OUT AND SCREAM IN PAIN, WELL HEARING A BABY CRY. PT ASSURED THOSE TWO THINGS DID NOT HAPPEN. PT LAUGHED IT OFF AND WENT BACK TO SLEEP. LUNG SOUNDS REMAIN COARSE T/O ALL LOBES. UPPER LOBES HAVE NOTED RHONCHI BILATERALLY. OCCASIONALLY COUGHING WITH THIN, WHITE SECRETIONS IN SMALL AMOUNTS NOTED. NS WITH 20MEQ OF KCL INFUSING AT 75MLS/HR. HELD LASIX DOSE SCHEDULED FOR 2100 D/T PT'S SBP 80-100'S WITH MAP'S 60-65. ADMINISTERED MIDODRINE AND ADMINISTERED ALBUMIN WITH NO CHANGE TO VS. PT IS ANXIOUS AND READY TO GO HOME TODAY. PT IS CURRENTLY UP IN CHAIR WITH CALL LIGHT WITHIN REACH. ABLE TO MAKE NEEDS KNOWN, BUT NEEDS FREQUENT REMINDERS TO ASK FOR HELP HE WILL ATTEMPT SELF TRANSFERRING. WILL CONTINUE TO MONITOR UNTIL REPORT IS HANDED OFF TO ONCOMING RN.
--- NOTE | 2018-10-29 08:02 | NUR ---
Recieved report from Georgiana BATES. Patient sitting up in chair watching TV. Levophed remains off and systolic 114 and MAP >65. He is alert and oriented and is a SBA in room. He is on RA and sats mid to upper 90%'s. He uses urinal appropriately with very dark denis urine in smallamounts, 100ml at a time. He has 20ga IV in RFA dressingintact and site WNL's infusing Keppra currently. He has another 20ga IV in LFA dressing intact and site WNL's infusing NS with 20meq K at 75ml/hr. He is eating breakfast and beer and tolerates well. Dr Perez will be down to discharge patient this am. See VS
--- NOTE | 2018-10-29 10:11 | NUR ---
Patient nup in chair and independent in room and is 90% stable. Friend in room with him. Systololic 90-100's. Dr Duartetrate in rooma nd is discharging patient. patient got dressed and is waiting for paperwork.
[2018-10-29] MEDS ORDERED: FOLI1 PO (10:14)
[2018-10-29] MEDS ORDERED: MIDO5 PO (10:15)
[2018-10-29] MEDS ORDERED: OMEPRAZOLE MAGN20 MG PO (10:21)
[2018-10-29] MEDS ORDERED: ONDA4ODT MM (10:22)
[2018-10-29] MEDS ORDERED: LEVE500 PO (10:22)
[2018-10-29] MEDS ORDERED: SODCHL1 PO (10:23)
[2018-10-29] MEDS ORDERED: Thiamine HCl100 MG PO (10:23)
--- NOTE | 2018-10-29 10:46 | NUR ---
Patient has been discharged. bilateral FA IV's removed intact and polaced gauze and wrapped in coban. He was given written discharge instructions and they were called into [facility] and they were reviewed and what each of them were for. He returned understanding of all information. He finished getting dressed and was placed in wheelchair and taken to exit where he was picked up and went home POV
== END 2018-10-29 10:38 | disposition home or self-care (01) | DRG 433 ==
LOC: ER 15:27 → PCU 17:47 → ICUE 10-27 12:46
PROVIDERS: Family Medicine; Internal Medicine; Nurse Practitioner Acute Care; ADMIT Internal Medicine
PROC: 0W9G3ZZ Drainage of Peritoneal Cavity, Percutaneous Approach (ICD-10-PCS; principal; 2018-10-25)
DX: K70.31 Alcoholic cirrhosis of liver with ascites (principal); E87.1 Hypo-osmolality and hyponatremia; F09 Unspecified mental disorder due to known physiological condition; F10.20 Alcohol dependence, uncomplicated; F17.210 Nicotine dependence, cigarettes, uncomplicated; F12.20 Cannabis dependence, uncomplicated; D63.8 Anemia in other chronic diseases classified elsewhere; E88.09 Other disorders of plasma-protein metabolism, not elsewhere classified; J44.9 Chronic obstructive pulmonary disease, unspecified; E03.9 Hypothyroidism, unspecified; I95.9 Hypotension, unspecified; Y90.8 Blood alcohol level of 240 mg/100 ml or more
CPT/HCPCS: 36415; 49083; 71045; 80048; 80053; 81001; 82330; 83735; 83880; 83930; 83935; 84300; 84439; 84443; 85025; 85027; 85610; 94640; 94760; 96374; 97110; 97112; 97116; 97162; 99284-25; J1650; J1940; J1953; J2060; J2405; J3480; J7030; J7050; J7060; P9046

== ENCOUNTER 2018-11-09 00:15 | Day surgery (SDC) | payer OTHER ==
[~2018-11-09 00:15] MED LIST changes: +FOLI1 PO; +MIDO5 PO; +OMEPRAZOLE MAGN20 MG PO; +ONDA4ODT MM; +Omeprazole20 M1 PO; +SODCHL1 PO; +Thiamine HCl100 MG PO
== END 2018-11-09 23:20 | disposition home or self-care (01) ==
LOC: US 00:15 → ATC 09:00 → US 14:00
DX: K70.31 Alcoholic cirrhosis of liver with ascites (principal)
CPT/HCPCS: 49083

== ENCOUNTER 2018-11-17 13:10 | Day surgery (SDC) | payer OTHER | END 2018-11-17 22:58 | disposition home or self-care (01) | LOC: US 13:10 | DX: K70.31 Alcoholic cirrhosis of liver with ascites (principal) | CPT/HCPCS: 49083 ==

== ENCOUNTER 2018-11-21 13:22 | Inpatient (IN) | payer OTHER ==
[~2018-11-21] VITALS: Ht 185.4 cm; Wt 73.6 kg
[2018-11-21 13:50] LABS: BASOPHILS ABSOLUTE AUTO 0.03 K/mm3 (0.00-0.23); BASOPHILS PERCENT AUTO 0 % (0-2); EOSINOPHILS ABSOLUTE AUTO 0.02 K/mm3 (0.00-0.68); EOSINOPHILS PERCENT AUTO 0 % (0-6); Hematocrit 34.5 % (37.0-53.0); Hemoglobin 12.3 g/dL (13.5-17.5); Mean Corpuscular HGB 37.7 pg (26.0-34.0); Mean Corpuscular HGB Conc 35.7 g/dL (31.5-36.5); Mean Corpuscular Volume 106 fL (80-100); Mean Platelet Volume 9.1 fL (9.1-12.4); Platelet Count 132 K/mm3 (150-400); RDW Coefficient Variation 13.6 % (11.7-14.2); RDW Standard Deviation 53.1 fL (35.1-46.3); Red Blood Cell Count 3.26 M/mm3 (4.30-5.90); White Blood Cell Count 8.06 K/mm3 (4.00-11.30)
[2018-11-21 13:59] LABS: IMMATURE GRAN ABSOLUTE AUTO 0.02 K/mm3 (0.00-0.10); IMMATURE GRAN PERCENT AUTO 0 % (0-1); LYMPHOCYTES ABSOLUTE AUTO 0.55 K/mm3 (0.84-5.20); LYMPHOCYTES PERCENT AUTO 7 % (21-46); MONOCYTES ABSOLUTE AUTO 0.33 K/mm3 (0.16-1.47); MONOCYTES PERCENT AUTO 4 % (4-13); NEUTROPHILS ABSOLUTE AUTO 7.11 K/mm3 (1.96-9.15); NEUTROPHILS PERCENT AUTO 88 % (41-73)
[2018-11-21 14:08] LABS: Albumin, Blood 2.1 g/dL (3.4-5.0); Albumin/Globulin Ratio 0.4 (0.8-1.8); Bilirubin, Total 4.9 mg/dL (0.1-1.0); Bun/Creatinine Ratio 14.3 (12.0-20.0); Calcium, Blood 8.2 mg/dL (8.5-10.1); Creatinine, Blood 1.75 mg/dL (0.60-1.20); Globulin, Blood 5.7 g/dL (2.2-4.0); Potassium, Blood 5.1 mmol/L (3.5-5.5); Total Protein, Blood 7.8 g/dL (6.4-8.2)
--- NOTE | 2018-11-21 16:20 | NUR ---
Spoke with patient about his current living situation and symptoms. Pt able to particpate in most of it. Speech slurred and aggitated. He drank before coming in to ER. Pt denies headaches. States he has been having buzzing and some ringing in ears lately. Denies and oral helath issues or difficulty swallowing. States as his abdomen fills he is more tight in his breathing. He has no appetite and has less stools. States he takes his PO meds. He is voiding, He states his abdomen is leaking at the previous sites where they tapped him. He states the only pain he has is in his abdomen. He denies falls and states he has not been able to get up or walk. He ahs no intention of quiting drinking. States he saw doctor malini last tuesday and he told him doctor was upset and talked to him about dying. Pt wants full treatment and full code status. He names some of the nursed in ICU and stated he needed to be there because they know how to care for him. He stated his sister confronted him today and had him come to hospital. We reviewed levels of care and up to and including a pleurex and hospice. Pt stated dr nayak said not to pleurex and that he was high risk for infection. Pt next of kin is his mother and patient confirmed that is his decision maker. Spoke with his respiratory care assistant and ended conversation due to sighn of possible intoxication. Review of hospice. Will review with admitting physician and social service. pt ability to make decisions may be limited. advised pt we need to fill out a polst when he is sober and discuss a plan. will ask for MOST score and prognosis. pt PPS score 20%.
--- NOTE | 2018-11-21 19:57 | NUR ---
shift summary: pt arrived to the unit at about 1730. Pt was oriented to room and unit. Denies questions and states "I've done this a few times". Pt Abd very distended with ascites. States that it is acctually softer then it is sometimes. Last paracentesis was 11/17 and 5L were removed at that time. HR tachy. LS diminished with some coarsness throughout. BT hypoactive. Pulses palp. +4 edema in bilateral feet, states he has swelling in his feet often. Pt requesting something to drink, water and beer. Called physician and obtained an order. Pt does have some tremors, CIWA about a 6 at this time. Will medicate per orders. Pt states that when he does withdraw he has seizures. Will monitor CIWA's. Report given to night RN and care transfered.
--- NOTE | 2018-11-21 21:40 | NUR ---
PATIENT VOMITING. GREEN BILE WITH TRACES OF BRIGHT RED BLOOD. PATIENT REFUSES ANY MEDICATION FOR VOMITING STATES HE VOMITS EVERY DAY USUALLY IN THE MORNING.
[2018-11-22 03:54] LABS: BASOPHILS ABSOLUTE AUTO 0.03 K/mm3 (0.00-0.23); BASOPHILS PERCENT AUTO 0 % (0-2); EOSINOPHILS ABSOLUTE AUTO 0.01 K/mm3 (0.00-0.68); EOSINOPHILS PERCENT AUTO 0 % (0-6); Hematocrit 29.6 % (37.0-53.0); Hemoglobin 10.4 g/dL (13.5-17.5); IMMATURE GRAN ABSOLUTE AUTO 0.03 K/mm3 (0.00-0.10); IMMATURE GRAN PERCENT AUTO 0 % (0-1); LYMPHOCYTES ABSOLUTE AUTO 0.63 K/mm3 (0.84-5.20); LYMPHOCYTES PERCENT AUTO 8 % (21-46); MONOCYTES ABSOLUTE AUTO 0.58 K/mm3 (0.16-1.47); MONOCYTES PERCENT AUTO 7 % (4-13); Mean Corpuscular HGB 36.6 pg (26.0-34.0); Mean Corpuscular HGB Conc 35.1 g/dL (31.5-36.5); Mean Corpuscular Volume 104 fL (80-100); Mean Platelet Volume 9.7 fL (9.1-12.4); NEUTROPHILS ABSOLUTE AUTO 6.57 K/mm3 (1.96-9.15); NEUTROPHILS PERCENT AUTO 84 % (41-73); Platelet Count 94 K/mm3 (150-400); RDW Coefficient Variation 13.5 % (11.7-14.2); RDW Standard Deviation 51.9 fL (35.1-46.3); Red Blood Cell Count 2.84 M/mm3 (4.30-5.90); White Blood Cell Count 7.85 K/mm3 (4.00-11.30)
[2018-11-22 04:07] LABS: International Normalized Ratio 1.34; Prothrombin Time Results 13.8 Sec (9.7-11.5)
[2018-11-22 04:12] LABS: Albumin, Blood 2.9 g/dL (3.4-5.0); Albumin/Globulin Ratio 0.6 (0.8-1.8); Bilirubin, Total 4.4 mg/dL (0.1-1.0); Bun/Creatinine Ratio 13.5 (12.0-20.0); Calcium, Blood 8.1 mg/dL (8.5-10.1); Creatinine, Blood 2.08 mg/dL (0.60-1.20); Globulin, Blood 4.6 g/dL (2.2-4.0); Magnesium, Blood 1.9 mg/dL (1.6-2.4); Potassium, Blood 5.4 mmol/L (3.5-5.5); Total Protein, Blood 7.5 g/dL (6.4-8.2)
--- NOTE | 2018-11-22 05:11 | NUR ---
PATIENT MAKES INAPPROPRIATE COMMENTS TOWARDS FEMALE STAFF. PATIENT DRANK ONE BEER AND FRIEND STAYED IN ROOM. UNKNOWN IF FRIEND BROUGHT IN ANY MORE ALCOHOL, HE DID BRING IN A CUP WITH LIQUID IN IT. NOT SURE IF PATIENT DRANK FROM THIS CUP. PATIENT STATES HE JUST WANTS TO GO HOME TODAY. PATIENT DID NOT SLEEP VERY MUCH TONIGHT AND WOKE UP CONFUSED ON WHERE HE WAS MULTIPLE TIMES.
--- NOTE | 2018-11-22 07:15 | NUR ---
am assessment: Pt laying in bed moaning at times. States that he has abd pain that is intermitant. The highest that his pain reached was a 3. Pt also having some emisis but refusing any antiemetics. Abd very distended and firm. Possible paracentisis today. LS with crackles throughout. Pt has a wet, productive cough. States "can't i have something to help with this congestion". WIll find out and treat. HR tachycardic. BP low. +4 edema in feet. Room mate at bedside. Will speak to physician about the multiple issues. Will monitor and treat pt per orders.
--- NOTE | 2018-11-22 12:09 | NUR ---
Pal Spiritual Care inital note: Mr. Medrano was awake and appeared lucid. He tells me he knows he is dying. I gently explained hospice philosphy and benefits. Told him that hospice would provide pain/symptom management in his own home. With hospice, he would not return to hospital, and he will be free to continue his desired lifestyle unhindered. I also explained that when he began to , hospice would ensure this happend peacefully. He enthusiastically said this is what he wanted. His room-mate was at bedside, and states he is persuing paid-caregiver benefit for pt. Informed RN of my conversation and pt's stated wishes. Vick admits he is a lapsed Roman Catholic and politely declined prayer. I will remain available.
--- NOTE | 2018-11-22 15:15 | NUR ---
UPDATE: Pt seems to be getting weaker and more fatigued as the day goes along. Pt went for paracentesis at around 1330 and returned around 1430. When he came back still very lethargic and fatigued, moaning, BP very low. Pt dozes off frequently. Mother and step father in room. Spoke about difficulties with his low NA, Low BP, ascites, and many other issues. Spoke breifly about hospice and benefits of CC. Pt mother tearful but state she knows he isn't going to get better. Will continue to monitor and treat.
--- NOTE | 2018-11-22 15:26 | NUR ---
Pt back from paracentesis. complaining of pain to his tailbone area and some dyspnea and fatigue. pt able to answer some questions and drifts off due to fatigue. Met with mother to relay the conversations we have had in the past with the patient. We reviewed his stress and and aggitation at having to make decisions. Advised pt mother we discussed hospice with patient and the chaplian did also. Explained the hospice plan and what it offers. Spoke to the mother on how it can support her in her grief. She cried through most of the conversation but was appreciative of the input and a plan. Spoke of Vick as her son and his suffering and treating him as a whole person not just his illness. She states he was baptised a rastafarian advised we can help with spiritual care. We returned to room and turned pt and she comforted him and told him she loves him. She feels hospice would be best. Advised her that he is not doing well at this point and may not be able to make decisions for himself. She needed a break from seeing him like this and the discussion. Advised her to take a break and process all of the information. Told her we may have to call her to make him comfort care in the hospital. Vick's mother expressed understanding and some relief and appreciation of plan of care. She will need spiritual care support for her manager intermediate stress and grief. Pt may not tolerate pleurex placement or further fluid drains. KPS score is 20%.
--- NOTE | 2018-11-22 18:09 | NUR ---
SHIFT SUMMARY: Pt has continued to decline throughout the shift. He has become more fatigued and lethargic. Since his return from his paracentesis his BP has remained very low. Albumin and 500cc bolus were given and Pt BP still in the 70-80's systolically. Pt will open his eyes and respond to some questions but then doze back off. Resp are shallow and appear labored. pt states that he feels like he can't catch his breath. Placed on 2l per NC to keep biox >90%. Although pt does answer some questions appropriatly, he is having a hard time following directions and at times appears to be reaching for something. Pt mother and room-mate are aware of his decline. At this point pt states that he wants full treatment. Unsure if he is cognasant and able to make sound decisions at this time. Will continue to monitor and report to night RN.
--- NOTE | 2018-11-22 20:31 | NUR ---
ASSUMED CARE OF PATIENT AT APPROXIMATELY 1900 FROM JOHNSON Zavala RN. PATIENT LEGTHARGIC; ABLE TO ANSWER SOME QUESTIONS; NOT FOLLOWING COMMANDS; DID NOT SQUEEZE FINGERS; CONFUSED. ABLE TO ANSWER IN WITH ONE WORD AT AT TIME; VERY DYSPNEIC; LABORED BREATHING; RESPIRATORY RATE IN 30'S; NSR ON TELE; PIERCING MACHINE OPERATOR STATED NEW 1 DEGREE SINCE APPROXIMATELY 1400; REPORTED PATIENT HAS NOT BEEN ABLE TO EAT OR DRINK SINCE ARRIVAL BACK FROM PARACENTESIS. PG INFUSING NS AT 50ML; 2ND DOSE OF ALBUMIN FINISHED AND NO IMPROVEMENT IN BLOOD PRESSURE; SBP 70'S; INCREASE TO SBP OF 80 AFTER BEING REPOSISTIONED. CALLED DONA SANTOS TO REPORT CHANGES IN STATUS; ORDERS RECIEVED. PIV S/L. REPORTED PATIENT'S HEALTHCARE PROXY IS HIS MOTHER; NUMBER IN CHART. ATTENDS IN PLACE. PATIENT RESTING IN BED; CALL LIGHT IN REACH; BED IN LOWEST POSISTION; WILL CONTINUE TO MONITOR AND ASSESS UNTIL END OF SHIFT.
[2018-11-22 20:40] LABS: PCO2 Arterial 16.7 mmHg (35-45); PO2 Arterial 85.7 mmHg (80-100); pH Blood Arterial 7.03 (7.35-7.45)
[2018-11-22 21:43] LABS: Albumin, Blood 3.2 g/dL (3.4-5.0); Albumin/Globulin Ratio 0.8 (0.8-1.8); Bilirubin, Total 4.6 mg/dL (0.1-1.0); Bun/Creatinine Ratio 9.9 (12.0-20.0); Creatinine, Blood 2.93 mg/dL (0.60-1.20); Globulin, Blood 3.8 g/dL (2.2-4.0); Potassium, Blood 6.2 mmol/L (3.5-5.5)
--- NOTE | 2018-11-22 21:59 | NUR ---
CALLED DONA SANTOS ABOUT LABS: K+ 6.2; CO2 6; GLUCOSE 12 IN LAB; LOW ON CHEM BG; AST 1242; LACTIC 15.0; AMMONIA OF 476 AND SBP REMAININING IN 70'S; SALES OPERATIONS ASSOCIATE GAVE AMP OF DEXTROSE; PATIENT STARTED TO WAKE UP AND TOUCH FACE COMPARED TO LETHARGIC AND NOT MOVING. DONA SANTOS TO CALL MOTHER REGARDING TREATMENT PLAN; PATIENT CURRENTLY FULL CODE. 2X NS BOLUS AND D-10; CBG EVERY 30 MINUTES. NOTIFIED DONA SANTOS OF PATIENT NOT ABLE TO TAKE PO KEPPRA AND IN ETOH WITHDRAWAL; NO NEW ORDERS RECIEVED.
--- NOTE | 2018-11-22 22:20 | NUR ---
TOM COSTA, DONA IN ROOM WITH PATIENT, UNABLE TO ANSWER QUESTIONS WHEN ASK. PATIENT UNABLE TO REPOND WITNESSED BY THIS RN Delvin ARMSTRONG RN AFTER STERNAL RUB.
--- NOTE | 2018-11-22 22:24 | NUR ---
CALL PLACED TO PATIENT'S HEALTHCARE PROXY, HIS MOTHER ALEKSANDR REYES. EXLAINED THE CHANGE IN PATIENT'S STATUS; PATIENT NOT RESPONSIVE; ONLY MOANING WITH STERNAL RUB; EXPLAINED THAT DONA SANTOS WAS BEDSIDE WITH PATIENT AND EVALUATED PATIENT'S STATUS. THIS RN VERIFIED WITH PATIENT'S MOTHER THAT SHE WOULD MAKE PATIENT COMFORT CARE AND IF SHE UNDERSTANDS; ALEKSANDR RESPONDED "THAT'S THE WAY WE ARE GOING TO GO". THIS RN ALSO ASKED IF ALEKSANDR WAS GOING TO COME INTO THE HOSPITAL TONIGHT AND SHE RESPONDED IT WOULD "PUT ALOT ON ME"; SHE REQUESTED SHE BE CALLED WITH ANY OTHER CHANGES. DONA SANTOS WAS BEDSIDE WITH PATIENT AT 2218 FOR SECOND TIME; PATIENT MOANS TO STERNAL RUB. NO ANSWERING QUESTIONS. OPENING EYES FOR A SECOND.
--- NOTE | 2018-11-22 22:34 | NUR ---
CALLED DONA SANTOS TO REPORT PATIENT'S HEALTHCARE PROXY, (MOTHER) ALEKSANDR, VERIFIED SHE WOULD LIKE HER SON TO BE COMFORT CARE. DONA SANTOS WILL INPUT ORDERS; FLUIDS TO BE DISCONTINUED.
--- NOTE | 2018-11-23 01:01 | NUR ---
WHILE ROUNDING ON PATIENT; PATIENT WAS FOUND TO BE WITHOUT PULSE AND NO LONGER BREATHING; VERIFIED BY RUY ARMSTRONG, U MANAGER [employer]ELOP[employer]; TIME OF CALLED BY MANAGER MARKET DEVELOPMENT AT 2345. NURSING RADAR SCIENTIST RADHA MEJÍA NOTIFIED BY MANAGER MARKET DEVELOPMENT. DONA SANTOS WAS NOTIFIED AT 2349. 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 HOME NOTIFIED BY THIS RN; TALKED WITH BEST. PATIENT HAS BEEN PLACED IN YELLOW GOWN; BODY CLEANED AND IV'S REMOVED. WAITING FOR HOME SR. MANAGER CORPORATE COMMUNICATIONS TO ARRIVE.
--- NOTE | 2018-11-23 02:06 | NUR ---
PATIENT ESCORTED OUT OF BUILDING BY FELISHA FROM [facility] WITH ALL BELONGINGS.
--- NOTE | 2018-11-23 19:05 | NUR ---
follow up on how his mother is coping.
== END 2018-11-23 01:49 | DRG 433 ==
LOC: ER 13:22 → PCU 14:34
PROVIDERS: Emergency Medicine; Nurse Practitioner Acute Care; ADMIT Internal Medicine
PROC: 0W9G3ZZ Drainage of Peritoneal Cavity, Percutaneous Approach (ICD-10-PCS; principal; 2018-11-22)
DX: K70.31 Alcoholic cirrhosis of liver with ascites (principal); E87.1 Hypo-osmolality and hyponatremia; E87.2 Acidosis; Z51.5 Encounter for palliative care; J44.9 Chronic obstructive pulmonary disease, unspecified; K72.90 Hepatic failure, unspecified without coma; F10.20 Alcohol dependence, uncomplicated; F09 Unspecified mental disorder due to known physiological condition; D64.9 Anemia, unspecified; F17.200 Nicotine dependence, unspecified, uncomplicated; Z79.899 Other long term (current) drug therapy
CPT/HCPCS: 36415; 36600; 49083; 71045; 80053; 82140; 82803; 82947; 83605; 83690; 83735; 85025; 85610; 96365; 99285-25; C1751; G0480; J7030; J7799; P9046